=== PATIENT | female | born 1985 | race African-American/Black ===

== ENCOUNTER 2020-03-04 11:48 | Emergency (ER) | payer OTHER ==
[~2020-03-04] VITALS: Ht 167 cm; Wt 125.0 kg
--- NOTE | 2020-03-04 13:08 | Diagnostic Imaging Report ---
INDICATION: Shortness of breath. COMPARISON: No prior examinations are available for comparison. FINDINGS: The heart size, mediastinal configuration, and pulmonary vascularity are within normal limits. There is no pleural effusion, pneumothorax, or pneumonia. The osseous structures are unremarkable. IMPRESSION: No acute cardiopulmonary abnormality. Dictated by: Dictated on workstation # [id number]
--- NOTE | 2020-03-04 13:11 | ED General ---
General Chief Complaint: General Problems/Pain Stated Complaint: LOW O2 Nursing Triage Note: PT HAS HAD COUGH, NASAL CONGESTION AND RUNNY NOSE FOR THE PAST TWO DAYS. PT DENIES FEVER. PT WAS TESTED FOR COVID YESTERDAY. PT IS INCARCERATED. Nursing Sepsis Screen: No Definite Risk History of Present Illness Date Seen by Provider: Mar 04, 2020 Time Seen by Provider: 12:05 Initial Comments Patient is a 34-year-old AA female inmate who presents with complaints of cough, body aches chills and fever for the past several days. Patient had COVID testing performed yesterday at the facility which is pending. Today, patient's oxygen was reported to be the low 90s on pulse oximetry and the patient was transferred to the ED for additional evaluation. Patient denies shortness of breath chest pain palpitations. No fever chills today but does report generalized weakness fatigue and malaise and occasional cough. Patient afebrile with O2 saturation of 99% on room air. Of note, the patient does have long acrylic nails making obtaining inaccurate reading difficult Timing/Duration: 1/2 Hour, 5-6 Days Severity: Mild Associated Systoms: Cough, Weakness Allergies and Home Medications Patient Home Medication List Home Medication List Reviewed: Yes Review of Systems Review of Systems Constitutional: see HPI EENTM: see HPI Respiratory: see HPI Cardiovascular: see HPI Gastrointestinal: see HPI Genitourinary: see HPI Musculoskeletal: see HPI Skin: see HPI Psychiatric/Neurological: See HPI Hematologic/Lymphatic: See HPI Immunological/Allergic: see HPI All Other Systems Reviewed Negative Unless Noted: Yes Past Palocrt-Bfheni-Ubudbf Hx Past Med/Social Hx: Reviewed Nursing Past Med/Soc Hx Patient Social History Alcohol Use: Denies Use Recreational Drug Use: No Smoking Status: Never a Smoker 2nd Hand Smoke Exposure: No Recent Foreign Travel: No Contact w/Someone Who Travel: No Recent Infectious Disease Expo: No Recent Hopitalizations: No Physical Abuse: No Sexual Abuse: No Mistreated: No Fear: No Seasonal Allergies Seasonal Allergies: No Past Medical History Surgeries: No Respiratory: No Cardiac: No Neurological: No Genitourinary: No Gastrointestinal: No Musculoskeletal: No Endocrine: No HEENT: No Cancer: No Psychosocial: No Integumentary: No Blood Disorders: No Physical Exam Vital Signs Vital Signs - First Documented 03/04/20 03/04/20 12:01 12:02 Temp 35.8 Pulse 110 Resp 16 B/P (MAP) 126/72 (90) Pulse Ox 99 O2 Delivery Room Air Capillary Refill : Less Than 3 Seconds Height, Weight, BMI Height: '" Weight: lbs. oz. kg; 44.00 BMI Method: General Appearance: No Apparent Distress, Anxious Eyes: Bilateral Eye Normal Inspection, Bilateral Eye PERRL, Bilateral Eye EOMI HEENT: PERRL/EOMI, Normal ENT Inspection, Pharynx Normal Neck: Normal Inspection, Non Tender, Supple Respiratory: Chest Non Tender, Lungs Clear, Normal Breath Sounds Cardiovascular: Regular Rate, Rhythm Gastrointestinal: Non Tender, Soft Back: Normal Inspection Neurologic/Psychiatric: Alert, Oriented x3, Normal Mood/Affect, wire brusher II-XII Norm as Tested Focused Exam Sepsis Stage: Ruled Out Progress/Results/Core Measures Suspected Sepsis Recent Fever Within 48 Hours: No Infection Criteria Present: None New/Unexplained Altered Menta: No Sepsis Screen: No Definite Risk SIRS Temperature: Pulse: 110 Respiratory Rate: 16 Blood Pressure 126 /72 Mean: 90 Results/Orders My Orders Orders - STUART PEÑALOZA DO Chest 1 View Ap/Pa Only (03/04/20 12:17) Vital Signs/I&O 03/04/20 03/04/20 12:01 12:02 Temp 35.8 Pulse 110 Resp 16 B/P (MAP) 126/72 (90) Pulse Ox 99 O2 Delivery Room Air Room Air Capillary Refill : Less Than 3 Seconds Blood Pressure Mean: 90 Departure Communication (Admissions) Stable vital signs. No respiratory distress. Chest x-ray unremarkable. Recommend continued 14, supportive care, watchful waiting with follow-up with [facility]. Impression Primary Impression: Viral syndrome Disposition: HOME, SELF-CARE Condition: Stable Departure-Patient Inst. Decision time for Depature: 13:11 Add. Discharge Instructions: Your exam is consistent with COVID or another viral respiratory illness. Please continue to self quarantine and isolate pending COVID results. Take Tylenol as needed for fever and body aches. All discharge instructions reviewed with patient and/or family. Voiced understanding. STUART PEÑALOZA DO Mar 04, 2020 13:11
[2020-03-04 13:28] VITALS: BP 122/72
== END 2020-03-04 13:29 | disposition home or self-care (01) ==
LOC: ER FS 11:49
DX: B34.9 Viral infection, unspecified (principal); F41.9 Anxiety disorder, unspecified
CPT/HCPCS: 71045

== ENCOUNTER 2022-06-08 22:11 | Emergency (ER) | payer SELFPAY ==
[~2022-06-08] VITALS: Ht 167.7 cm; Wt 124.7 kg
--- NOTE | 2022-06-08 22:34 | ED EENT ---
History of Present Illness General Chief Complaint: Dental Problems/Pain Stated Complaint: JAW PAIN Source: patient Exam Limitations: no limitations History of Present Illness Date Seen by Provider: Jun 08, 2022 Time Seen by Provider: 22:20 Initial Comments 37-year-old female presents to the emergency department today for right jaw pain. About 10:00 this morning she stood up, got lightheaded and passed out striking her right jaw on the side table. She states she has had multiple episodes of syncope under most circumstances. This has been evaluated on several occasions and no obvious cause has been identified. She complains of right jaw pain. She "tried to sleep it off." She states it just feels "off." She worries about be dislocated. She has eaten both with some increased pain. She denies headache, changes in vision. Allergies and Home Medications Patient Home Medication List Home Medication List Reviewed: Yes Review of Systems Review of Systems Constitutional: no symptoms reported Eyes: No Symptoms Reported Ears: No Symptoms Reported Nose: no symptoms reported Mouth: other (Right jaw pain) Throat: no symptoms reported ( Flexeril) Respiratory: no symptoms reported Cardiovascular: no symptoms reported Gastrointestinal: no symptoms reported Skin: no symptoms reported Neurological: No Symptoms Reported Hematologic/Lymphatic: No Symptoms Reported Immunological/Allergic: no symptoms reported Past Czittqg-Ocfxqn-Knrdze Hx Patient Social History Tobacco Use?: Yes Tobacco type used: Cigarettes Substance use?: No Alcohol Use?: No Immunizations Up To Date Influenza Vaccine Up-to-Date: No; Not Current Seasonal Allergies Seasonal Allergies: No Past Medical History Surgeries: No Respiratory: No Cardiac: No Neurological: No Genitourinary: No Gastrointestinal: No Musculoskeletal: No Endocrine: No HEENT: No Cancer: No Psychosocial: No Integumentary: No Blood Disorders: No Family Medical History Reviewed Nursing Family Hx No Pertinent Family Hx Physical Exam Vital Signs Vital Signs - First Documented 06/08/22 22:20 Pulse 101 B/P (MAP) 162/89 (113) Pulse Ox 99 O2 Delivery Room Air Height, Weight, BMI Height: '" Weight: lbs. oz. kg; 44.00 BMI Method: General Appearance: WD/WN, no apparent distress Eyes: bilateral eye normal inspection, bilateral eye PERRL, bilateral eye EOMI Ears: bilateral ear auricle normal, bilateral ear canal normal, bilateral ear TM normal Nose: normal inspection Mouth/Throat: normal mouth inspection, pharynx normal, other (Small swelling of the right mandibular region. There is tenderness to palpation of the base of the mandible on the right side. No obvious deformity. Palpation of the TMJ, mandible with jaw opening and closing does not reveal any deviation, no click.) Neck: non-tender, full range of motion, supple Cardiovascular: regular rate, rhythm, no murmur Respiratory: chest non-tender, lungs clear, normal breath sounds, no respiratory distress, no accessory muscle use Gastrointestinal: normal bowel sounds, non tender, soft, no organomegaly Neurologic/Psychiatric: no motor/sensory deficits, alert, normal mood/affect, oriented x 3 Skin: normal color, warm/dry Progress/Results/Core Measures Results/Orders My Orders Orders - AYESHA DELATORRE DO Ct Maxillofacial Wo (06/08/22 22:52) Vital Signs/I&O 06/08/22 22:20 Pulse 101 B/P (MAP) 162/89 (113) Pulse Ox 99 O2 Delivery Room Air Departure Communication (Admissions) The patient is hemodynamically stable. She has no obvious deformity but she does have some mild swelling in the area. No click or deviation with opening. No malocclusion she just states it "feels off." CT scan is negative. I have independently reviewed the images and read official radiology interpretation. There is no evidence for dislocation, fracture. I think she likely bruised the bone. There is no indication for intracranial issues and a syncopal episode has been evaluated that she has had this for several years no obvious cause identified. I do not think there is any indication for emergent lab work-up, cardiac work-up in that circumstance. She is advised to use conservative measures such as ibuprofen and Tylenol as needed. I did offer her Toradol injection which she declines here stating the pain is not that bad she just wa nted to make sure it was not broken. Impression Primary Impression: Jaw pain Disposition: 01 HOME, SELF-CARE Condition: Stable Departure-Patient Inst. Referrals: NO,LOCAL PHYSICIAN (PCP/Family) Primary Care Physician Patient Instructions: Acute Pain, Adult Add. Discharge Instructions: You were seen in the emergency department today for right jaw pain. Your CT scan is negative for any dislocations, fractures. This is likely bruising in the area. Please alternate ibuprofen and Tylenol as needed for pain. Return to the emergency department for any severe concerns. Follow-up with your primary doctor for any nonemergent needs. All discharge instructions reviewed with patient and/or family. Voiced understanding. AYESHA DELATORRE DO Jun 08, 2022 22:34
[2022-06-08 23:42] VITALS: BP 162/89
--- NOTE | 2022-06-09 07:14 | Diagnostic Imaging Report ---
EXAMINATION: CT face without contrast. TECHNIQUE: Multiple contiguous axial images were obtained through the face without the use of intravenous contrast. Sagittal and coronal reformations through the cervical spine were then performed. All CT scans use one or more of the following dose optimizing techniques: automated exposure control, MA and/or KvP adjustment based on patient size and exam type or iterative reconstruction. HISTORY: R jaw pain after trauma COMPARISON: None available. FINDINGS: The orbits are normal. Paranasal sinuses are normal. Mastoid air cells are clear. No fracture is seen in the face. The nasal bones are normal. Mandible and maxillae are normal. Zygomatic arches are normal. Pterygoid plates are normal. No soft tissue abnormality is seen. Limited views of the brain are normal. IMPRESSION: 1. No acute osseous abnormality of the maxillary facial bones. 2. Agree with preliminary interpretation. Dictated by: Dictated on workstation # [id number]
== END 2022-06-08 23:42 | disposition home or self-care (01) ==
LOC: EDUNIT# 22:11 → ER 22:14
DX: R68.84 Jaw pain (principal); R55 Syncope and collapse; F17.210 Nicotine dependence, cigarettes, uncomplicated; Z28.310 Unvaccinated for COVID-19
CPT/HCPCS: 70486